=== PATIENT | female | born 1970 | race Two or more races ===

== ENCOUNTER 2016-11-01 15:28 | Emergency (ER) | payer BC ==
[~2016-11-01] VITALS: Ht 157.5 cm; Wt 46.3 kg
[2016-11-01 16:39] LABS: BASOPHILS % (AUTO) 0.7 % (0.0-2.0); DIFF TOTAL % 100 %; EOSINOPHILS # (AUTO) 0.1 /CMM (0.0-0.7); EOSINOPHILS % (AUTO) 1.4 % (0.0-6.0); HEMATOCRIT 43 % (33-45); HEMOGLOBIN 14.1 g/dL (11.5-14.8); LYMPHOCYTES # (AUTO) 2.6 /CMM (0.8-4.8); LYMPHOCYTES % (AUTO) 37.6 % (20.0-44.0); MEAN CORPUSCULAR HEMOGLOBIN 28 PG (26.0-33.0); MEAN CORPUSCULAR HGB CONC 33 g/dl (31.0-36.0); MEAN CORPUSCULAR VOLUME 86 fL (82-100); MONOCYTES # (AUTO) 0.4 /CMM (0.1-1.30); NEUTROPHILS # (AUTO) 3.7 /CMM (1.8-8.9); NEUTROPHILS % (AUTO) 54.3 % (43.0-81.0); PLATELET COUNT (AUTO) 233 /CMM (150-450); RED BLOOD CELL COUNT(AUTO) 5.03 MIL/uL (4.0-5.2); WHITE BLOOD COUNT (AUTO) 6.8 K/uL (4.3-11.0)
[2016-11-01 16:47] LABS: CALCIUM, SERUM 8.7 mg/dL (8.5-10.1); CREATININE 0.8 mg/dL (0.6-1.3); POTASSIUM 3.3 mmol/L (3.5-5.1)
[2016-11-01 17:01] LABS: KETONES,URINE NEGATIVE (NEGATIVE); LEUKOCYTE ESTERASE ,URINE NEGATIVE (NEGATIVE)
[2016-11-01 17:01] LABS: ALBUMIN 3.7 g/dL (3.4-5.0); BILIRUBIN,DIRECT 0.1 mg/dL (0.0-0.2); BILIRUBIN,TOTAL 0.5 mg/dL (0.2-1.0); INDIRECT BILIRUBIN 0.4 mg/dL (0.0-1.1); TOTAL PROTEIN, SERUM 7.1 g/dL (6.4-8.2)
[2016-11-01 17:03] LABS: LACTIC ACID 0.7 mmol/L (0.4-2.0)
[2016-11-01 17:10] LABS: ADD UA MICROSCOPIC YES
[2016-11-01 17:11] LABS: PREGNANCY TEST URINE QUAL NEGATIVE (NEGATIVE)
[2016-11-01 17:13] LABS: WBC,URINE 0-2 /HPF (0-3)
[2016-11-01 17:14] LABS: ADD URINE CULTURE NO
[2016-11-01 19:51] VITALS: BP 121/69
== END 2016-11-01 19:51 | disposition home or self-care (01) ==
LOC: ER 15:29
DX: R10.31 Right lower quadrant pain (principal); Z88.0 Allergy status to penicillin
CPT/HCPCS: 36415; 76700-TC; 76856-TC; 80048-TC; 80076-TC; 81000-TC; 83605-TC; 83690-TC; 84703-TC; 85025-TC; 87086-TC; A4606; G0480; Z7610

== ENCOUNTER 2018-01-21 09:12 | Emergency (ER) | payer BC ==
[~2018-01-21] VITALS: Ht 154.9 cm; Wt 49.9 kg
--- NOTE | 2018-01-21 09:29 | NUR ---
PATIENT TO ED DT DIZZINESS, NAUSEA, HEADACHE SINCE 0600AM. AFEBRILE. VSS
[2018-01-21] MEDS ORDERED: ONDANSETRON HCL/PF 4 MG/2 ML VIAL ONE (09:57)
[2018-01-21] MEDS ORDERED: LORAZEPAM INJ 2 MG/ML VIAL ONE (09:57)
[2018-01-21] MEDS ORDERED: ONDANSETRON 4 MG TAB.RAPDIS SL ONE (10:00)
[2018-01-21] MEDS ORDERED: IV NS 0.9% 1,000 ML BAG IV ONE (10:00)
[2018-01-21] MEDS ORDERED: LORAZEPAM 1 MG TABLET PO ONE (10:00)
[2018-01-21 10:09] LABS: LYMPHOCYTES # (AUTO) 1.6 /CMM (0.8-4.8); WHITE BLOOD COUNT (AUTO) 5.6 K/uL (4.3-11.0)
[2018-01-21 10:14] LABS: CALCIUM, SERUM 8.8 mg/dL (8.5-10.1); CREATININE 0.7 mg/dL (0.6-1.3)
[2018-01-21 10:29] LABS: THYROID STIMULATING HORMONE 0.718 uIU/mL (0.358-3.74)
[2018-01-21 10:40] LABS: BASOPHILS % (AUTO) 0.4 % (0.0-2.0); HEMATOCRIT 41 % (33-45); HEMOGLOBIN 13.8 g/dL (11.5-14.8); LYMPHOCYTES % (AUTO) 28.1 % (20.0-44.0); MEAN CORPUSCULAR HGB CONC 34 g/dl (31.0-36.0); MEAN CORPUSCULAR VOLUME 82 fL (82-100); MONOCYTES # (AUTO) 0.3 /CMM (0.1-1.30); MONOCYTES % (AUTO) 4.6 % (2.0-12.0); NEUTROPHILS # (AUTO) 3.6 /CMM (1.8-8.9); NEUTROPHILS % (AUTO) 65.9 % (43.0-81.0); PLATELET COUNT (AUTO) 190 /CMM (150-450); RDW COEFFICIENT OF VARIATION 12.6 (11.5-15.0); RED BLOOD CELL COUNT(AUTO) 4.99 MIL/uL (4.0-5.2)
--- NOTE | 2018-01-21 12:22 | NUR ---
IV removed. Catheter intact and site benign. Pressure and 4x4 applied to site. No bleeding noted.
--- NOTE | 2018-01-21 12:22 | NUR ---
Patient discharged to home in stable condition. Written and verbal after care instructions given. Patient verbalizes understanding of instruction.
[2018-01-21 12:26] VITALS: BP 118/73
== END 2018-01-21 12:32 | disposition home or self-care (01) ==
LOC: ER 09:13
DX: F41.1 Generalized anxiety disorder (principal); Z88.0 Allergy status to penicillin
CPT/HCPCS: 36415; 80048-TC; 84443-TC; 85025-TC; A4606; J2060; J2405; J7030; Z7610

== ENCOUNTER 2018-09-12 17:49 | Emergency (ER) | payer BC, MEDICAID ==
[~2018-09-12] VITALS: Ht 154.9 cm; Wt 56.2 kg
[2018-09-12 18:03] VITALS: BP 141/74
[2018-09-12] MEDS ORDERED: TETRACAINE HCL/PF 0.5% UD 2 ML BOTTLE ONE (18:18)
[2018-09-12] MEDS ORDERED: FLUORESCEIN SODIUM OPHTH 1 EA STRIP ONE (18:22)
--- NOTE | 2018-09-12 19:05 | NUR ---
Patient discharged to home in stable condition. Written and verbal after care instructions given. Patient verbalizes understanding of instruction.
== END 2018-09-12 19:06 | disposition home or self-care (01) ==
LOC: ER 17:52
DX: H10.11 Acute atopic conjunctivitis, right eye (principal); H18.821 Corneal disorder due to contact lens, right eye; Z88.0 Allergy status to penicillin
CPT/HCPCS: 99283; A4606; Z7610

== ENCOUNTER 2019-02-21 16:58 | Emergency (ER) | payer BC, MEDICAID ==
[~2019-02-21] VITALS: Ht 157.5 cm; Wt 54.4 kg
--- NOTE | 2019-02-21 17:30 | NUR ---
PATIENT C/O SOB X1 MONTH AND BILATERAL ANKLE EDEMA. PATIENT A/OX4, ON ROOM AIR WITH O2 SAT OF 98%. NO SOB NOTED AT THIS TIME. PATIENT'S VITALS STABLE. WILL CONTINUE TO MONITOR.
--- NOTE | 2019-02-21 17:50 | NUR ---
IV LINE ESTABLISHED ON LEFT AC G20, BLOOD DRAWN AND SENT TO LAB.
[2019-02-21 18:21] LABS: BASOPHILS % (AUTO) 0.9 % (0.0-2.0); EOSINOPHILS % (AUTO) 2.8 % (0.0-6.0); HEMATOCRIT 42 % (33-45); LYMPHOCYTES # (AUTO) 1.9 /CMM (0.8-4.8); LYMPHOCYTES % (AUTO) 36.6 % (20.0-44.0); MEAN CORPUSCULAR HGB CONC 34 g/dl (31.0-36.0); MEAN CORPUSCULAR VOLUME 85 fL (82-100); MONOCYTES # (AUTO) 0.3 /CMM (0.1-1.30); MONOCYTES % (AUTO) 6.7 % (2.0-12.0); NEUTROPHILS # (AUTO) 2.8 /CMM (1.8-8.9); PLATELET COUNT (AUTO) 164 /CMM (150-450); WHITE BLOOD COUNT (AUTO) 5.2 K/uL (4.3-11.0)
[2019-02-21 18:29] LABS: CALCIUM, SERUM 9.1 mg/dL (8.5-10.1); CARBON DIOXIDE 28 mmol/L (21-32); CHLORIDE 104 mmol/L (98-107); CREATININE 0.7 mg/dL (0.6-1.3); GLUCOSE 89 mg/dL (74-106); POTASSIUM 3.7 mmol/L (3.5-5.1); SODIUM SERUM 140 mmol/L (136-145); UREA NITROGEN, BLOOD 15 mg/dL (7-18)
[2019-02-21 18:35] LABS: ALANINE AMINOTRANSFERASE 43 U/L (12-78); ALBUMIN 3.8 g/dL (3.4-5.0); ALKALINE PHOSPHATASE 63 U/L (46-116); ASPARTATE AMINOTRANSFERASE 23 U/L (15-37); BILIRUBIN,DIRECT 0.1 mg/dL (0.0-0.2); BILIRUBIN,TOTAL 0.5 mg/dL (0.2-1.0); TOTAL PROTEIN, SERUM 7.5 g/dL (6.4-8.2)
--- NOTE | 2019-02-21 19:05 | NUR ---
US DONE TO RULE OUT DVT.
--- NOTE | 2019-02-21 19:20 | NUR ---
REPORT REC'D FROM LUCERO WORKMAN FOR [facility].
[2019-02-21 19:26] LABS: D-DIMER 0.42 mg/L(FEU (0.17-0.50)
--- NOTE | 2019-02-21 19:33 | NUR ---
ENDOSRED TO [facility] FOR [facility].
--- NOTE | 2019-02-21 20:30 | NUR ---
Patient discharged to home in stable condition. Written and verbal after care instructions given. Patient verbalizes understanding of instruction. PT AMBULATED OUT WITH A STEADY GAIT. VSS.
[2019-02-21 21:29] VITALS: BP 119/68
== END 2019-02-21 21:30 | disposition home or self-care (01) ==
LOC: ER 16:59
DX: R06.02 Shortness of breath (principal); R22.43 Localized swelling, mass and lump, lower limb, bilateral; D68.51 Activated protein C resistance; Z88.0 Allergy status to penicillin
CPT/HCPCS: 36415; 71045-TC; 80048-TC; 80076-TC; 83690-TC; 84484-TC; 85025-TC; 85378-TC; 85730-TC; 93970-TC